=== PATIENT | female | born 2000 | race Caucasian/White ===

== ENCOUNTER 2021-04-06 15:38 | Inpatient (IN) | payer MEDICAID ==
[~2021-04-06] VITALS: Ht 162.6 cm; Wt 67.5 kg
[2021-04-06] MEDS ORDERED: SODIUM CHLORIDE 0.9% 1,000 ML IV ONE ×3 (16:00→18:30)
[2021-04-06] MEDS ORDERED: SODIUM BICARBONATE 50ML VIAL 50 ML in SOD CHL 0.45% 1,000 ML IV ONE (16:30)
[2021-04-06 16:59] LABS: Hematocrit 42.5 % (36.0-46.0)
[2021-04-06 17:01] LABS: Hemoglobin 12.8 g/dL (12.2-16.2); Mean Corpuscular Hemoglobin 28.7 pg (28.0-32.0); Mean Corpuscular Hgb Conc. 30.2 g/dL (32.0-36.0); Mean Corpuscular Volume 95.2 fL (80.0-100.0); Red Blood Cells 4.46 10^6/uL (4.0-5.20); Red Cell Distribution Width 15.9 % (11.8-14.3)
[2021-04-06] MEDS ORDERED: SODIUM BICARBONATE 8.4% INJ 50ML SYRINGE ONE ×2 (17:24→22:11)
[2021-04-06 17:29] LABS: Albumin 3.2 g/dL (3.4-5.0); Anion Gap 19 (5-15); Blood Urea Nitrogen 14 mg/dL (7-18); Chloride 112 mmol/L (98-107); Glucose 400 mg/dL (74-106); Lipase 55 U/L (73-393); Magnesium 2.4 mg/dL (1.6-2.6); Potassium 4.1 mmol/L (3.5-5.1); Sodium 134 mmol/L (136-145)
[2021-04-06 17:37] LABS: Alanine Aminotransferase 30 U/L (13-56); Alkaline Phosphatase 199 U/L (45-117); Aspartate Aminotransferase 10 U/L (15-37); BUN/Creatinine Ratio 14.1; Bilirubin, Total 0.3 mg/dL (0.2-1.0); GFR African American 90 mL/min; GFR Non-African American 75 mL/min
[2021-04-06 17:46] LABS: Carbon Dioxide 3 mmol/L (21-32)
[2021-04-06 17:55] LABS: Urine Bacteria FEW /hpf (None Seen); Urine Blood 1+ /uL (Negative); Urine Mucus FEW (None Seen); Urine Specific Gravity 1.013 (1.001-1.035); Urine WBC 2 /hpf (0 - 5)
[2021-04-06 17:59] LABS: White Blood Cell 34.3 10^3/uL (4.4-10.8)
[2021-04-06] MEDS ORDERED: cefTRIAXone 1GM/50ML D5W 50 ML IV ONE (18:00)
[2021-04-06] MEDS ORDERED: DEXTROSE (50%) 50ML SYRG IV PRN (18:00)
[2021-04-06 18:01] LABS: Basophils % (manual) 0 (0.0-2.0); Blast Cells 0; Eosinophils % (manual) 0 (0-7); Myelocytes % 0; Promyelocytes % 0; Reactive Lymphocytes 0
[2021-04-06] MEDS: InsuLIN R (HUMAN) 100 UNITS in SODIUM CHL 0.9% 99 ML IV SCH ×3 (18:22→23:18)
[2021-04-06] MEDS: ACCU-CHEK COMFORT CURVE STRIP VI SCH ×4 (18:23→23:14)
[2021-04-06] MEDS: SODIUM CHLORIDE 0.9% 1,000 ML IV SCH ×2 (18:29→20:00)
[2021-04-06] MEDS: POTASSIUM CHLORIDE 40 MEQ in SOD CHL 0.45% 1,000 ML IV SCH (18:56)
[2021-04-06 19:00] VITALS: BP 134/75
[2021-04-06 19:42] LABS: Alcohol, Urine < 3.0 mg/dL (0-10); Amphetamine Screen, Urine NEGATIVE (NEGATIVE); Barbiturate Scree,Urine NEGATIVE (NEGATIVE); Benzodiazephine Screen, Urine NEGATIVE (NEGATIVE); Cannabinoid Screen, Urine NEGATIVE (NEGATIVE); Cocaine Screen, Urine NEGATIVE (NEGATIVE); Opiate Scree,Urine NEGATIVE (NEGATIVE); Phencyclidine Screen, Urine NEGATIVE (NEGATIVE)
[2021-04-06 20:00] VITALS: BP 132/76
[2021-04-06 20:04] LABS: Band Neutrophils % (manual) 5; Lymphocytes % (manual) 9 (10.0-50.0); Metamyelocytes % 1; Monocytes % (manual) 7 (0-12)
[2021-04-06] MEDS ORDERED: SODIUM CHLORIDE 0.9% 2,000 ML IV ONE (20:15)
[2021-04-06 21:00] VITALS: BP 142/85
[2021-04-06] MEDS ORDERED: SODIUM BICARBONATE 8.4 % INJ 50ML VIAL IV ONE ×2 (21:00→22:00)
[2021-04-06 22:00] VITALS: BP 131/72
[2021-04-06] MEDS ORDERED: SODIUM CHLORIDE 0.9% 1,000 ML IV SCH (22:00)
[2021-04-06 23:00] VITALS: BP 135/66
[2021-04-06] MEDS: D5W/SOD CHLO 0.9% 1,000 ML IV SCH (23:27)
[2021-04-06 23:39] LABS: BUN/Creatinine Ratio 17.8; Calcium 8.2 mg/dL (8.5-10.1); Potassium 3.1 mmol/L (3.5-5.1)
[2021-04-07 00:07] VITALS: BP 106/76
[2021-04-07] MEDS: ACCU-CHEK COMFORT CURVE STRIP VI SCH ×14 (00:30→20:03)
[2021-04-07] MEDS: InsuLIN R (HUMAN) 100 UNITS in SODIUM CHL 0.9% 99 ML IV SCH ×3 (00:40→06:47)
[2021-04-07 01:00] VITALS: BP 110/68
[2021-04-07] MEDS ORDERED: SODIUM BICARBONATE 8.4 % INJ 50ML VIAL IV ONE ×4 (01:15→20:45)
[2021-04-07] MEDS: POTASSIUM CHL 20MEQ/100ML 100 ML IV SCH ×6 (01:15→19:01)
[2021-04-07 02:00] VITALS: BP 97/64
[2021-04-07 03:00] VITALS: BP 94/60
[2021-04-07 04:00] VITALS: BP 109/64
[2021-04-07] MEDS: POTASSIUM CHLORIDE 40 MEQ in SOD CHL 0.45% 1,000 ML IV SCH ×2 (04:42→15:10)
[2021-04-07 05:00] VITALS: BP 104/66
[2021-04-07] MEDS: D5W/SOD CHLO 0.9% 1,000 ML IV SCH ×2 (06:15→15:15)
[2021-04-07] MEDS: SODIUM CHLORIDE 0.9% 1,000 ML IV SCH ×4 (06:15→16:15)
[2021-04-07 09:26] LABS: Basophils # (auto) 0 10 ^3/uL (0-0.2); Basophils % (auto) 0.1 % (0.0-2.0); Eosinophils # (auto) 0 10 ^3/uL (0-0.8); Hematocrit 32.5 % (36.0-46.0); Hemoglobin 10.6 g/dL (12.2-16.2); Lymphocytes # (auto) 0.8 10 ^3/uL (0.4-5.4); Lymphocytes % (auto) 3.6 % (10.0-50.0); Mean Corpuscular Hemoglobin 28.8 pg (28.0-32.0); Mean Corpuscular Hgb Conc. 32.6 g/dL (32.0-36.0); Mean Corpuscular Volume 88.2 fL (80.0-100.0); Monocytes # (auto) 2.1 10 ^3/uL (0-1.3); Monocytes % (auto) 9.3 % (0.0-12.0); Red Blood Cells 3.68 10^6/uL (4.0-5.20); Red Cell Distribution Width 14.5 % (11.8-14.3)
[2021-04-07] MEDS: levoFLOXacin 500MG 100 ML IV SCH (09:28)
[2021-04-07 09:43] LABS: BUN/Creatinine Ratio 14.1; Calcium 8.1 mg/dL (8.5-10.1)
[2021-04-07 09:55] LABS: Potassium 2.5 mmol/L (3.5-5.1)
[2021-04-07] MEDS ORDERED: SODIUM CHLORIDE 0.9% 2,000 ML IV ONE (10:30)
[2021-04-07] MEDS ORDERED: POTASSIUM CHL 20 Meq TABLET PO ONE ×2 (10:30→14:30)
[2021-04-07] MEDS ORDERED: ACETAMINOPHEN 325 MG TAB PO PRN (11:30)
[2021-04-07] MEDS: ONDANSETRON HCL 4 MG/2 ML VIAL IV PRN ×2 (11:36→16:15)
[2021-04-07 14:36] LABS: Calcium 7.3 mg/dL (8.5-10.1)
[2021-04-07 14:38] LABS: BUN/Creatinine Ratio 11.8
[2021-04-07 15:54] LABS: Potassium 2.4 mmol/L (3.5-5.1)
[2021-04-07] MEDS ORDERED: PANTOPRAZOLE 40 MG/10 ML VIAL INJ IV ONE (16:15)
[2021-04-07] MEDS ORDERED: INSULIN LANTUS (GLARGINE) 1 /0.01ml (100units/ml) SC ONE (16:15)
[2021-04-07] MEDS ORDERED: POTASSIUM EFFERVESENT TAB 25 MEQ PO ONE ×2 (16:15→18:15)
[2021-04-07] MEDS ORDERED: DEXTROSE (50%) 50ML SYRG IV PRN (16:15)
[2021-04-07] MEDS ORDERED: D5W/SOD CHL 0.45%/KCL 40MEQ 1,000 ML IV SCH (16:30)
[2021-04-07] MEDS: PROMETHAZINE HCL 25 MG/ML 1ML IM PRN (17:39)
[2021-04-07] MEDS: MAGNESIUM SULFATE 1GM/100ML 100 ML IV SCH ×2 (18:05→19:02)
[2021-04-07 18:06] LABS: Sodium Urine 107 mmol/L (40-220)
[2021-04-07 18:11] LABS: Creatinine, Urine 15 mg/dL (30.0-125.0); Protein, Urine 55.9 mg/dL (0.0-11.9)
[2021-04-07] MEDS: InsuLIN REG 1unit/0.01ml Soln (100units/ml) SC SCH (20:05)
[2021-04-07] MEDS ORDERED: ALBUTEROL SULF 2.5 MG/0.5ML(0.5%) NEB SOLN NEB PRN (20:30)
[2021-04-07 20:31] LABS: BUN/Creatinine Ratio 7.1; Calcium 7.7 mg/dL (8.5-10.1); Potassium 3.2 mmol/L (3.5-5.1)
[2021-04-08] MEDS: POTASSIUM CHLORIDE 10 MEQ in SOD CHL 0.45% 1,000 ML IV SCH ×3 (00:15→09:09)
[2021-04-08] MEDS: ACCU-CHEK COMFORT CURVE STRIP VI SCH ×7 (00:18→23:52)
[2021-04-08 00:19] VITALS: BP 127/75
[2021-04-08] MEDS: InsuLIN REG 1unit/0.01ml Soln (100units/ml) SC SCH ×7 (00:22→23:54)
[2021-04-08 01:22] LABS: BUN/Creatinine Ratio 5.1; Calcium 7.8 mg/dL (8.5-10.1)
[2021-04-08 06:06] LABS: Albumin 1.9 g/dL (3.4-5.0); Calcium 7.7 mg/dL (8.5-10.1); Magnesium 2.2 mg/dL (1.6-2.6)
[2021-04-08 06:09] LABS: BUN/Creatinine Ratio 7.3; Bilirubin, Total 0.4 mg/dL (0.2-1.0); Total Protein 6.1 g/dL (6.4-8.2)
[2021-04-08 06:12] LABS: Hematocrit 30.6 % (36.0-46.0); Hemoglobin 10.2 g/dL (12.2-16.2); Mean Corpuscular Hemoglobin 28.4 pg (28.0-32.0); Mean Corpuscular Hgb Conc. 33.4 g/dL (32.0-36.0); Mean Corpuscular Volume 84.9 fL (80.0-100.0); Red Cell Distribution Width 14.3 % (11.8-14.3); White Blood Cell 17.6 10^3/uL (4.4-10.8)
[2021-04-08 06:30] LABS: Phosphorus 0.4 mg/dL (2.5-4.90); Potassium 2.4 mmol/L (3.5-5.1)
[2021-04-08 06:36] LABS: Basophils % (manual) 0 (0.0-2.0); Blast Cells 0; Eosinophils % (manual) 0 (0-7); Metamyelocytes % 0; Promyelocytes % 0; Reactive Lymphocytes 0
[2021-04-08] MEDS: MAGNESIUM SULFATE 1GM/100ML 100 ML IV SCH ×4 (07:00→16:35)
[2021-04-08] MEDS ORDERED: POTASSIUM PHOSPHATE 44 MEQ in D5W 5% 250 ML IV ONE (07:30)
[2021-04-08] MEDS ORDERED: POTASSIUM CHLORIDE 60 MEQ, LIDOCAINE 1% (LOCAL ANESTH.) 6 ML in SODIUM CHL 0.9% 500 ML IV ONE (07:45)
[2021-04-08] MEDS: INSULIN LANTUS (GLARGINE) 1 /0.01ml (100units/ml) SC SCH (09:10)
[2021-04-08] MEDS ORDERED: guaiFENesin-DM 100/10mg/5ml SYR PO PRN (09:30)
[2021-04-08] MEDS: levoFLOXacin 500MG 100 ML IV SCH (10:07)
[2021-04-08] MEDS: PANTOPRAZOLE 40 MG/10 ML VIAL INJ IV SCH (10:08)
[2021-04-08 10:17] LABS: Band Neutrophils % (manual) 15; Lymphocytes % (manual) 8 (10.0-50.0); Monocytes % (manual) 14 (0-12); Myelocytes % 1
[2021-04-08] MEDS: PROMETHAZINE HCL 25 MG/ML 1ML IM PRN (10:47)
[2021-04-08 14:00] VITALS: BP 126/73
[2021-04-08] MEDS ORDERED: INSLANTI SC (15:44)
[2021-04-08 17:00] VITALS: BP 120/72
[2021-04-08] MEDS ORDERED: POLYETHYLENE GLYCOL 17 GM PWDR PO ONE (18:15)
[2021-04-08 18:48] LABS: BUN/Creatinine Ratio 9.6; Calcium 7.5 mg/dL (8.5-10.1)
[2021-04-08] MEDS: ONDANSETRON HCL 4 MG/2 ML VIAL IV PRN (18:52)
[2021-04-08 19:11] LABS: Potassium 2.8 mmol/L (3.5-5.1)
[2021-04-08] MEDS ORDERED: POTASSIUM CHL 20 Meq TABLET PO ONE (19:30)
[2021-04-08] MEDS: POTASSIUM CHL 20MEQ/100ML 100 ML IV SCH ×2 (20:13→23:55)
[2021-04-08] MEDS ORDERED: POTASSIUM EFFERVESENT TAB 25 MEQ PO SCH (20:15)
[2021-04-08 22:00] VITALS: BP 108/62
[2021-04-08 22:16] LABS: Free T4 (Free Thyroxine) 1.15 ng/dL (0.89-1.76)
[2021-04-08] MEDS: FAMOTIDINE 20 MG TAB PO SCH (22:41)
[2021-04-08] MEDS: DOCUSATE SOD 100 MG CAP PO SCH (22:41)
[2021-04-08 22:44] LABS: T3 Total 0.61 ng/mL (0.60-1.81)
[2021-04-08] MEDS ORDERED: POTASSIUM PHOSPHATE 26.4 MEQ in SODIUM CHL 0.9% 100 ML IV ONE (23:30)
[2021-04-09] VITALS (7 sets, daily range): BP systolic 97–128; BP diastolic 64–82
[2021-04-09] MEDS: ACCU-CHEK COMFORT CURVE STRIP VI SCH ×5 (04:50→21:28)
[2021-04-09] MEDS: InsuLIN REG 1unit/0.01ml Soln (100units/ml) SC SCH ×5 (04:53→21:28)
[2021-04-09 05:53] LABS: Basophils # (auto) 0 10 ^3/uL (0-0.2); Basophils % (auto) 0.3 % (0.0-2.0); Eosinophils # (auto) 0 10 ^3/uL (0-0.8); Eosinophils % (auto) 0.1 % (0.0-7.0); Hematocrit 32.7 % (36.0-46.0); Hemoglobin 10.8 g/dL (12.2-16.2); Lymphocytes # (auto) 2.2 10 ^3/uL (0.4-5.4); Lymphocytes % (auto) 16.5 % (10.0-50.0); Mean Corpuscular Hemoglobin 28.7 pg (28.0-32.0); Mean Corpuscular Hgb Conc. 33.1 g/dL (32.0-36.0); Mean Corpuscular Volume 86.6 fL (80.0-100.0); Monocytes # (auto) 1.3 10 ^3/uL (0-1.3); Monocytes % (auto) 9.8 % (0.0-12.0); Neutrophils # (auto) 9.7 10 ^3/uL (1.6-8.6); Neutrophils % (auto) 73.3 % (37.0-80.0); Red Blood Cells 3.77 10^6/uL (4.0-5.20); Red Cell Distribution Width 14.8 % (11.8-14.3); White Blood Cell 13.2 10^3/uL (4.4-10.8)
[2021-04-09 06:18] LABS: Potassium 3.4 mmol/L (3.5-5.1)
[2021-04-09 06:28] LABS: BUN/Creatinine Ratio 12.5; Calcium 7.8 mg/dL (8.5-10.1); Magnesium 2.6 mg/dL (1.6-2.6)
[2021-04-09 06:41] LABS: Phosphorus 0.9 mg/dL (2.5-4.90)
[2021-04-09] MEDS ORDERED: POTASSIUM PHOSPHATE 30 MEQ in SODIUM CHL 0.9% 100 ML IV ONE (08:00)
[2021-04-09] MEDS: CALCIUM CARB 500 MG CHEW TAB PO SCH ×3 (10:27→17:37)
[2021-04-09] MEDS: levoFLOXacin 500MG 100 ML IV SCH (10:29)
[2021-04-09] MEDS: PANTOPRAZOLE 40 MG/10 ML VIAL INJ IV SCH (10:29)
[2021-04-09] MEDS: FAMOTIDINE 20 MG TAB PO SCH ×2 (10:29→21:27)
[2021-04-09] MEDS: DOCUSATE SOD 100 MG CAP PO SCH ×2 (10:29→21:27)
[2021-04-09] MEDS: INSULIN LANTUS (GLARGINE) 1 /0.01ml (100units/ml) SC SCH (10:30)
[2021-04-09] MEDS: ONDANSETRON HCL 4 MG/2 ML VIAL IV PRN (10:35)
[2021-04-09] MEDS ORDERED: NEUTRA-PHOS TABLET PO ONE (11:30)
[2021-04-09] MEDS ORDERED: POTASSIUM PHOSPHATE 30 MEQ in D5W 5% 250 ML IV ONE (12:30)
[2021-04-09 14:43] LABS: Urine Bacteria NONE SEEN /hpf (None Seen); Urine Blood 2+ /uL (Negative); Urine Specific Gravity 1.015 (1.001-1.035); Urine WBC 56 /hpf (0 - 5)
[2021-04-09] MEDS ORDERED: INSU100I4 SC (21:32)
[2021-04-09] MEDS ORDERED: LEVO500T31 PO (21:32)
[2021-04-09] MEDS ORDERED: INSU1INJ19 SC (21:32)
[2021-04-09] MEDS ORDERED: BLOO-200 XX (21:36)
== END 2021-04-09 23:11 | disposition home or self-care (01) | DRG 720 ==
LOC: ER 15:38 → EDBD 15:38 → TELE 20:16 → TELE-CENTR 04-08 14:07
PROVIDERS: ADMIT Internal Medicine; ATTEND Internal Medicine
PROC: 05H933Z Insertion of Infusion Device into Right Brachial Vein, Percutaneous Approach (ICD-10-PCS; principal; 2021-04-07)
PROC: B54MZZA Ultrasonography of Right Upper Extremity Veins, Guidance (ICD-10-PCS; 2021-04-07)
DX: A41.9 Sepsis, unspecified organism (principal); G92.8 Other toxic encephalopathy; E10.10 Type 1 diabetes mellitus with ketoacidosis without coma; J18.9 Pneumonia, unspecified organism; E10.21 Type 1 diabetes mellitus with diabetic nephropathy; E83.39 Other disorders of phosphorus metabolism; E86.0 Dehydration; E10.649 Type 1 diabetes mellitus with hypoglycemia without coma; E83.42 Hypomagnesemia; E87.6 Hypokalemia; K21.9 Gastro-esophageal reflux disease without esophagitis; N18.2 Chronic kidney disease, stage 2 (mild); F43.22 Adjustment disorder with anxiety; E88.09 Other disorders of plasma-protein metabolism, not elsewhere classified; Z20.822 Contact with and (suspected) exposure to COVID-19; E10.22 Type 1 diabetes mellitus with diabetic chronic kidney disease; R80.9 Proteinuria, unspecified; N39.0 Urinary tract infection, site not specified; Z79.82 Long term (current) use of aspirin; Z91.14 Patient's other noncompliance with medication regimen; Z88.1 Allergy status to other antibiotic agents
CPT/HCPCS: 36415; 36600; 70450; 71045; 74176; 80048; 80053; 80307; 81001; 82010; 82570; 82805; 82962; 83605; 83690; 83735; 84100; 84156; 84300; 84439; 84443; 84480; 84484; 84702; 85007; 85025; 85027; 87040; 87086; 87088; 87426; 93005; 95819; 96361; 96365; 96368; 99291; C9113; G0378; J0696; J1815; J1956; J2001; J2405; J3480; J7042; J7060